=== PATIENT | female | born 1965 | race Two or more races ===

== ENCOUNTER 2023-02-03 19:36 | Emergency (ER) | payer SELFPAY ==
[~2023-02-03] VITALS: Ht 165.1 cm; Wt 77.1 kg
[2023-02-03 19:40] VITALS: O2SAT 96
--- NOTE | 2023-02-03 19:46 | NUR ---
After being triaged, patient was placed in hallway due to no beds available in the ER. Triaged nurse taking care of patient.
[2023-02-03] MEDS ORDERED: HYDR-4209 PO (19:59)
[2023-02-03] MEDS ORDERED: CLON0.1T PO (19:59)
[2023-02-03] MEDS ORDERED: PRED20TA PO (19:59)
[2023-02-03] MEDS ORDERED: AMOX500T2 PO (19:59)
--- NOTE | 2023-02-03 20:10 | NUR ---
Patient eloped from facility. ER physician notified.
== END 2023-02-03 20:10 | disposition left against medical advice (07) ==
LOC: ER 19:36
DX: R10.9 Unspecified abdominal pain (principal); Z79.2 Long term (current) use of antibiotics; Z79.899 Other long term (current) drug therapy
CPT/HCPCS: A4663